=== PATIENT | female | born 1985 | race American Indian/Alaskan Native ===

== ENCOUNTER 2024-10-25 21:29 | Emergency (ER) | payer MEDICAID, SELFPAY ==
[2024-10-25 21:30] VITALS: BMI 19.3
[2024-10-25 21:34] VITALS: BP 109/72; PULSE 98; RESP 19; TEMP 36.6; O2SAT 98
[2024-10-25 22:59] LABS: Collection Type, Urine Clean Catch
[2024-10-25 23:09] LABS: Bilirubin,Urine Negative (Negative); Blood,Urine 1+ (Negative); Clarity,Urine Clear (Clear/Hazy); Color,Urine Yellow (Lt Yel-Yel); Culture Indicated,Urine Not Indicated; Glucose, Urine 1+ (Negative); Hyaline Casts,Urine < 1 /hpf (0-1); Ketones,Urine Negative (Negative); Leukocyte Esterase,Urine Negative (Negative); Nitrite,Urine Negative (Negative); Protein,Urine Trace (Neg - Trace); RBC,Urine 7 /hpf (0-3); Specific Gravity,Urine 1.033 (1.001-1.035); Squamous Epithelial Cell,Urine 6 /hpf (0-5); Urobilinogen,Urine Negative mg/dL (0.0-1.0); WBC,Urine 3 /hpf (0-5)
[2024-10-25 23:10] LABS: Basophils % (Auto) 0 % (0-2.5); Eosinophils # (Auto) 0.2 Thou/mm3 (0.0-0.5); Eosinophils % (Auto) 2 % (0-10); Hematocrit 37.2 % (36.0-46.0); Hemoglobin 12.7 g/dL (12.0-16.0); Immature Granulocytes % (Auto) 0 % (0-0); Immature Granulocytes Auto 0.04 Thou/mm3 (0.00-0.00); Lymphocytes # (Auto) 3.1 Thou/mm3 (1.0-4.8); Lymphocytes % (Auto) 25 % (10-50); Mean Corpuscular HGB Conc 34.1 g/dl (31.0-37.0); Mean Corpuscular Hemoglobin 29.1 pg (25.0-35.0); Mean Corpuscular Volume 85 fL (80-100); Monocytes % (Auto) 8 % (0-12); Neutrophils # (Auto) 7.9 Thou/mm3 (1.8-7.7); Neutrophils % (Auto) 65 % (37-80); Nucleated Red Blood Cell % 0 /100 WBC (0); Platelet Count 204 Thou/mm3 (140-440); RDW Standard Deviation 43.3 fL (36.4-46.3); Red Blood Count 4.36 Miln/mm3 (4.00-5.20); White Blood Count 12.3 Thou/mm3 (3.6-11.0)
[2024-10-25] MEDS: KETOROLAC INJ 30 MG/ML VIAL IVP (23:16)
[2024-10-25] MEDS: ONDANSETRON INJ 2 MG/ML INJ 2 ML 4 MG IV (23:16)
--- NOTE | 2024-10-25 23:25 | XR_ITS ---
Examination: CT abdomen and pelvis without contrast. Coronal 3-D reconstructions. Sagittal 2-D reconstructions. Date and time of exam:October 26, 2024 0034 hours INDICATIONS: Right lower abdominal pain today with nausea and vomiting, history kidney stones Comparison April 25, 2024 CTDI: vol (mGy): 5.79 DLP: (mGycm): 283 Technique: Axial images of the abdomen have been obtained, 3 mm slice thickness Intravenous contrast material has not been administered. Low dose protocols were performed. One or more of the following dose reduction techniques were used; automated exposure control, adjustment of the mA and/or KV according to patient size, use of iterative reconstruction technique. Findings: No focal liver or splenic lesion No pancreatic mass Bilateral tiny renal calculi with no hydronephrosis or ureteral calculi Aorta normal size No bowel obstruction Normal appendix Retroverted uterus Minimal thickening of the urinary bladder wall IMPRESSION: Bilateral nonobstructing renal calculi No hydronephrosis or ureteral calculi Normal appendix Cystitis pattern
[2024-10-25 23:31] LABS: Alanine Aminotransferase 11 U/L (10-49); Albumin, Serum 4.4 gm/dL (3.5-5.0); Albumin/Globulin Ratio 1.5 (1.2-2.2); Alkaline Phosphatase 55 U/L (46-116); Anion Gap 7 (7-16); Aspartate Amino Transferase 17 U/L (0-34); BUN/Creatinine Ratio 19 Ratio (12-20); Bilirubin,Total 0.5 mg/dL (0.3-1.2); Blood Urea Nitrogen 15 mg/dL (9-23); Carbon Dioxide 26.6 mMol/L (20.0-31.0); Chloride 106 mMol/L (98-107); Creatinine (Component) 0.8 mg/dL (0.6-1.3); Estimated Creatinine Clearance 79.5 mL/min (>60); Globulin 2.9 gm/dL (2.3-3.5); Glucose 117 mg/dL (74-106); Lipase 28 U/L (12-53); Osmolality,Calculated 281 (275-295); Potassium 3.4 mMol/L (3.4-5.1); Sodium 140 mMol/L (136-145); Total Protein 7.3 gm/dL (5.7-8.2); eGFR > 60 See Note
[2024-10-25 23:33] LABS: HCG Qualitative,Urine Negative
[2024-10-26 01:16] VITALS: BP 116/72; PULSE 78; RESP 18; TEMP 37.1; O2SAT 99
--- NOTE | 2024-10-26 01:43 | PRELIM_ITS ---
CT scan of the abdomen and pelvis without intravenous contrast (axial sections with sagittal and coronal reformats) October 26, 2024 0034 hours Clinical History: Right lower quadrant/flank pain and nausea/vomiting. Comparison: None available at the time of this report. Findings: The lung bases are clear. The liver, gallbladder, pancreas, spleen, and adrenals are unremarkable on this noncontrast study. Nonobstructing left kidney stone. No hydronephrosis. The uterus and ovaries are within normal limits. No evidence of bowel obstruction. The appendix is within normal limits. There is no mesenteric or retroperitoneal adenopathy. Air within the urinary bladder. There is no free fluid or free air. The osseous structures are unremarkable. Impression: Air within the urinary bladder, suspicious for cystitis. Nonobstructing left nephrolithiasis. Report Electronically Signed By: Christopher Brambila 10/26/2024 1:42:24 AM [EST]
[2024-10-26 02:27] VITALS: BP 119/95; PULSE 87; RESP 18; O2SAT 99
--- NOTE | 2024-10-26 05:02 | EDNOTE_ITS ---
ED Female Urogenital RME/HPI General Chief complaint: Abdominal Pain Stated complaint: RLQ PAIN HX OF KIDNEY STONES Time Seen by Provider: 10/25/24 22:29 Arrival date/time: 10/25/24 21:29 39F with history of kidney stones presents to ED with 1 day of R flank pain that radiates towards going, as well as some N/V. Patient denies dysuria. Patient states this feels similar to other kidney stones. Limitations: no limitations Related Data Previous Rx's ?Medication ?Instructions ?Recorded ibuprofen 600 mg tablet 600 mg PO Q6H PRN pain #30 t abs 04/25/23 nitrofurantoin macrocrystal 100 mg 100 mg PO Q12H #14 caps 04/25/23 capsule ondansetron 4 mg disintegrating 4 mg PO Q8H PRN nausea and 04/25/23 tablet vomiting #10 tabs ibuprofen 600 mg tablet 600 mg PO TID PRN pain #20 t abs 04/25/24 naproxen 500 mg tablet 500 mg PO BID PRN pain #30 t abs 10/26/24 ondansetron 4 mg disintegrating 4 mg PO Q8H PRN nausea and 10/26/24 tablet vomiting #14 tabs Allergies Allergy/AdvReac Type Severity Reaction Status Date / Time codeine Allergy Severe Hives Verified 04/25/23 06:05 iodine Allergy Severe Difficulty Verified 04/25/24 09:16 Breathing meperidine (From Demerol) Allergy Severe Vomiting Verified 04/25/23 06:05 Review of Systems Review of Systems Systems Reviewed: All systems reviewed, normal except as documented Constitutional Constitutional: Reports system reviewed and no additional complaints, except as documented, Denies fever(s) and Denies headache(s) ENT Ears, Nose, Mouth, and Throat: Denies disequilibrium and Denies headache(s) Cardiovascular Cardiovascular: Reports system reviewed and no additional complaints, except as documented, Denies chest pain and Denies dyspnea Respiratory Respiratory: Reports system reviewed and no additional complaints, except as documented, Denies cough and Denies dyspnea Gastrointestinal Gastrointestinal: Reports system reviewed and no additional complaints, except as documented, Reports as per HPI, Denies abdominal pain, Reports nausea and Reports vomiting Genitourinary Genitourinary: Reports as per HPI and Reports flank pain Neurologic Neurologic: Reports system reviewed and no additional complaints, except as documented, Denies confusion, Denies disequilibrium and Denies headache(s) Psychiatric Psychiatric: Denies confusion Past Medical History Past Medical History CARDIAC: Negative Cardiac Disorders or Congestive Heart Failure RESPIRATORY: Negative Chronic Obstructive Pulmonary Disease (COPD) or Asthma GENITOURINARY: Negative Renal Disease ENDOCRINE: Negative Diabetes Mellitus Type 1 or Diabetes Mellitus Type 2 HEMATOLOGIC: Positive Anemia; Negative Sickle Cell Disease OTHER HISTORY: Negative Blood Transfusions Surgical History SURGICAL: Positive Tubal Ligation and Section Social History SMOKING STATUS: Never smoker ED Exam General Limitations: Present no limitations General appearance: Present alert and in no apparent distress Head Head exam: Present atraumatic Eye Eye exam: Present normal appearance, PERRL and EOMI ENT ENT exam: Present normal exam, normal oropharynx and mucous membranes moist Neck Neck exam: Present normal inspection, full ROM and trachea midline Chest Chest inspection: Present normal inspection and symmetric chest wall rise Respiratory Respiratory exam: Present normal lung sounds bilaterally Cardiovascular Cardiovascular exam: Present regular rate, normal rhythm and normal heart sounds Abdominal Exam Abdominal exam: Present soft and normal bowel sounds Extremities Exam Extremities exam: Present normal inspection and full ROM Back Exam Back exam: Present full ROM and CVA tenderness (R) (mild) Neurological Exam Neurological exam: Present alert, oriented X3 and CN II-XII intact Psychiatric Psychiatric exam: Present normal affect and normal mood Skin Skin exam: Present warm, dry, intact and normal color Course Quality Measures none Orders Category Date Time Status CT Screening NOW Care 10/25/24 22:30 Completed Insert IV NOW Care 10/25/24 22:[address] abdomen pelvis wo con Stat Exams 10/25/24 23:25 Taken CBC Stat Lab 10/25/24 22:49 Completed CMP [Comprehensive Metabolic Panel] Stat Lab 10/25/24 22:49 Completed HCG Qualitative,Urine Stat Lab 10/25/24 22:46 Completed Lipase Stat Lab 10/25/24 22:49 Completed Urinalysis, C/S if Indicated Stat Lab 10/25/24 22:46 Completed Ketorolac Inj [Toradol Inj] Med 10/25/24 22:30 Discontinued 30 mg IVP X1 ONE Ondansetron Inj [Zofran Inj] Med 10/25/24 22:30 Discontinued 4 mg IV X1 ONE Vital Signs Vital signs: Vital Signs Temperature 98 F 10/25/24 21:34 Pulse Rate 98 10/25/24 21:34 Respiratory Rate 19 10/25/24 21:34 Blood Pressure 109/72 10/25/24 21:34 Pulse Oximetry (%) 98 10/25/24 21:34 Oxygen Delivery Method Room Air 10/25/24 21:34 O2 at 98% on RA and WNLs Urogenital - Female MDM Narrative MDM Narrative:: 39F with history of kidney stones presents to ED with 1 day of R flank pain that radiates towards going, as well as some N/V. Patient denies dysuria. Patient states this feels similar to other kidney stones. Physical exam reveals mild CVA tenderness but no ab tenderness. Patient is afebrile, alert, but appears to be in pain. CT reveals non-obstructing stone still in R kidney. Possible air in bladder suggesting UTI, but UA is clean and patient has no symptoms. Patient reveals during her previous , her bladder was accidentally cut during the procedure. Air likely from that. Mild leukocytosis. CMP unremarkable. Symptoms resolved with meds. Patient data External records reviewed:: [facility] previous records Clinical information provided by:: patient Social determinants that could affect healthcare access:: none Patient has the following chronic illnesses:: kidney stones How is presenting disease/condition affected by chronic disease/condition?: exacerbated by Evaluation data The following diagnostics were reviewed and interpreted by me:: lab results and radiology exam(s) Lab and/or radiology exams considered but not ordered:: ordered Interpretation Summary: above Medications / Prescriptions Medications or Prescriptions considered but not ordered:: ordered Medication administrations:: Medication Administration History Discontinued Medications Ketorolac Tromethamine (Ketorolac Inj 30 Mg/Ml Vial) 30 mg IVP X1 ONE Stop: 10/25/24 22:31 Last Admin: 10/25/24 23:16 Dose: 30 mg Documented By: SILVIA Ondansetron HCl (Ondansetron Inj 2 Mg/Ml Inj 2 Ml) 4 mg IV X1 ONE; Protocol Stop: 10/25/24 22:31 Last Admin: 10/25/24 23:16 Dose: 4 mg Documented By: SILVIA above Consultations Consultation(s) initiated? (list below): No Diagnosis Urogenital Female Differential Diagnosis: urinary tract infection, bacterial vaginosis, trichomoniasis, cervicitis, ovarian cyst, vaginitis, ruptured ovarian cyst, cyst of Bartholin's gland, cystitis, dysmenorrhea and other (kidney stone, pyelo) Most likely diagnosis given after review of the tests above:: kidney stone Admission Indicated Admission indicated?: not indicated Admission Request Was there a request for admission?: No Disposition Plan Disposition Plan: Discharge Discharge Attestation Discharge Attestation: The patient and all family members were given an opportunity to ask questions and understood the discharge instructions. Discharge instructions specifically effects, indications for sooner follow up or return to the emergency department, and the expected course of current diagnosis. Patient condition: Stable Discharge Plan Plan Patient Disposition: HOME (Self Care) Disposition Comment: Stable Prescriptions/Referrals Prescriptions/Med Rec: New ondansetron 4 mg tablet,disintegrating 4 mg PO Q8H PRN (Reason: nausea and vomiting) Qty: 14 0RF naproxen 500 mg tablet 500 mg PO BID PRN (Reason: pain) Qty: 30 0RF No Action ibuprofen 600 mg tablet 600 mg PO TID PRN (Reason: pain) Qty: 20 0RF ibuprofen 600 mg tablet 600 mg PO Q6H PRN (Reason: pain) Qty: 30 0RF nitrofurantoin macrocrystal 100 mg capsule 100 mg PO Q12H Qty: 14 0RF Rx Instructions: must administer with a meal/food ondansetron 4 mg tablet,disintegrating 4 mg PO Q8H PRN (Reason: nausea and vomiting) Qty: 10 0RF Referrals: Vaibhav Fried MD [Primary Care Provider] - In 1 week Problem List Clinical Impression: Calculus of kidney Patient/Caregiver Discharge Instructions Education Materials: ED Kidney Stone w/ Colic Additional Instructions: Please follow-up with PCP within 24-48 hours and return immediately if symptoms worsen. Your kidney stone is still in the kidney and has not descended. Can ask for referral to urologist. NSAIDs tend to work better than Tylenol for this type of pain. Print Language: Macedonian Stand Alone Forms: Patient Portal Info Letter ISABELL/NEPTALI Supervising Physician ISABELL/NEPTALI Supervising Physician: Dr. Tavera
== END 2024-10-26 02:28 | disposition home or self-care (01) ==
PROVIDERS: Physician Assistant; Emergency Provider Emergency Medicine; PCP Family Medicine
DX: N20.0 Calculus of kidney (principal)
CPT/HCPCS: 36415; 74176; 80053; 81001; 81025; 83690; 85025; 96374; 96375; 99284; J1885; J2405

== ENCOUNTER 2025-07-15 05:37 | Emergency (ER) | payer MEDICAID, SELFPAY ==
[2025-07-15 05:39] VITALS: BMI 19.3
[2025-07-15 05:52] VITALS: BP 109/68; PULSE 55; RESP 19; TEMP 36.8; O2SAT 100
--- NOTE | 2025-07-15 06:09 | XR_ITS ---
EXAMINATION: Left hand 2 views TECHNIQUE: AP lateral left hand 2 views Date and time of exam: July 15, 2025, 0815 hours INDICATIONS: Patient fell today with injury to the hand, hand pain FINDINGS: Moderate osteopenia Soft tissue swelling dorsum of the hand No acute fracture IMPRESSION: No acute fracture
--- NOTE | 2025-07-15 06:09 | XR_ITS ---
Examination: Left hip AP, lateral, AP pelvis 3 views Technique: Hip AP lateral, AP pelvis, 3 views Exam date and time: July 15, 2025, 0817 hours INDICATIONS: Patient fell today with injury to the left hip, left hip pain. FINDINGS: No left hip fracture or dislocation Right hip bones of the pelvis intact IMPRESSION: No acute hip or pelvic fracture.
--- NOTE | 2025-07-15 06:10 | XR_ITS ---
EXAMINATION: Ankle, left 3 views. Technique: Ankle AP, oblique, lateral 3 views Date and time of exam: July 15, 2025, 0820 hours INDICATIONS: Patient fell today with injury to the ankle, ankle pain. FINDINGS: No ankle fracture or dislocation No foreign body IMPRESSION: No ankle fracture or dislocation
--- NOTE | 2025-07-15 06:12 | EDNOTE_ITS ---
ED Fall Injury RME/HPI General Chief Complaint: Fall Stated Complaint: FELL ON LEFT SIDE, PAIN TO LEFT ARM/HAND Time Seen by Provider: 07/15/25 06:05 Arrival date/time: 07/15/25 05:37 RME / HPI RME / HPI Narrative: See [facility] for Dr. Puri's HPI documentation. Related Data Previous Rx's ?Medication ?Instructions ?Recorded ibuprofen 600 mg tablet 600 mg PO Q6H PRN pain #30 t abs 04/25/23 nitrofurantoin macrocrystal 100 mg 100 mg PO Q12H #14 caps 04/25/23 capsule ondansetron 4 mg disintegrating 4 mg PO Q8H PRN nausea and 04/25/23 tablet vomiting #10 tabs ibuprofen 600 mg tablet 600 mg PO TID PRN pain #20 t abs 04/25/24 naproxen 500 mg tablet 500 mg PO BID PRN pain #30 t abs 10/26/24 ondansetron 4 mg disintegrating 4 mg PO Q8H PRN nausea and 10/26/24 tablet vomiting #14 tabs hydrocodone 5 mg-acetaminophen 325 2 tab PO Q8H PRN pa in #12 tabs 07/15/25 mg tablet Allergies Allergy/AdvReac Type Severity Reaction Status Date / Time codeine Allergy Severe Hives Verified 04/25/23 06:05 iodine Allergy Severe Difficulty Verified 04/25/24 09:16 Breathing meperidine (From Demerol) Allergy Severe Vomiting Verified 04/25/23 06:05 Review of Systems Review of Systems Systems Reviewed: All systems reviewed, normal except as documented Past Medical History Past Medical History CARDIAC: Negative Cardiac Disorders or Congestive Heart Failure RESPIRATORY: Negative Chronic Obstructive Pulmonary Disease (COPD) or Asthma GENITOURINARY: Negative Renal Disease ENDOCRINE: Negative Diabetes Mellitus Type 1 or Diabetes Mellitus Type 2 HEMATOLOGIC: Positive Anemia; Negative Sickle Cell Disease OTHER HISTORY: Negative Blood Transfusions Surgical History SURGICAL: Positive Tubal Ligation and Section Social History SMOKING STATUS: Never smoker ED Exam Narrative Physical exam: See [facility] for Dr. Puri's physical exam documentation. Course Quality Measures none Orders Category Date Time Status XR ankle comp LT min 3V Stat Exams 07/15/25 06:10 Completed XR hand LT 2V Stat Exams 07/15/25 06:09 Completed XR hip LT w pelvis 2-3V Stat Exams 07/15/25 06:09 Completed HYDROcodone*/APAP 5/325 [[place] 5/325] Med 07/15/25 08:49 Discontinued 2 tab PO X1 ONE Ibuprofen Tab [Motrin Tab] Med 07/15/25 08:49 Discontinued 600 mg PO X1 ONE Vital Signs Vital signs: Vital Signs Temperature 98.2 F 07/15/25 05:52 Pulse Rate 55 L 07/15/25 05:52 Respiratory Rate 19 07/15/25 05:52 Blood Pressure 109/68 07/15/25 05:52 Pulse Oximetry (%) 100 07/15/25 05:52 Oxygen Delivery Method Room Air 07/15/25 05:52 Fall MDM Narrative MDM Narrative:: This section includes all my notes and documentations, including HPI, PE, and ED course. 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 No head injury. She reports left hand/hip/ankle pain. No other complaints. ROS: All negative except as documented in HPI. Physical Exam: General: Alert and oriented. No acute distress when remaining still. Eyes: Conjunctivae and lids clear. EOMI. PERRL. ENT: No signs of head trauma. Neck: Supple. No tenderness. Heart: RRR. Lungs: No respiratory distress. Good air movement. No rhonchi, wheezing, rales. Chest: No tenderness. Abdomen: Soft and nontender. Normal bowel sounds. No distension. No rebound or guarding. Back: No tenderness. Skin: Warm and dry. Neuro: Alert and oriented X 3. Cranial Nerves II-XII grossly intact. No peripheral motor deficits. Musculoskeletal: Left hand edematous with ecchymosis and tenderness. Equivocal left ankle and left hip tenderness. All other major joints and bones are not tender with no limited ROM. I reviewed all diagnostic test results: My interpretation of the left hand x-ray is: no fracture. My interpretation of the left ankle x-ray is: no fracture. My interpretation of the hip/pelvis x-ray is: no fracture. At this point, diagnoses include: Contusion of left hand Treatment here included: [place] 5/325 mg X 2 Ibuprofen 600 mg She felt better. Recommended supportive care. Based on my best medical judgment, made decision no further evaluation or treatment indicated at this time. Patient understands and agrees to the discharge instructions customized and printed, see below. Discharge Instructions from Dr. Puri printed for you: 1. Fortunately, there is no broken bone. 2. Minimal use of your left hand for 3 days for rest needed to heal. 3. Elevate above the heart level for 3 days as much as possible. Placing your hand on your head is a good method. 4. Apply ice for 20 minutes every 2-3 hours today and tomorrow. 5. Ibuprofen 600 mg every 6-8 hours today and tomorrow to decrease inflammation then as needed. 6. [place] for severe pain. 7. See a private doctor on 07/17/25 for recheck. Ask for help until you are completely better. 8. Seek immediate medical care with worsening or with any concerns. Pavan Puri MD Patient data External records reviewed:: [facility] previous records (Per chart review, patient was seen here on 10/26/24 for kidney calculus.) Clinical information provided by:: patient Social determinants that could affect healthcare access:: none Patient has the following chronic illnesses:: none How is presenting disease/condition affected by chronic disease/condition?: no chronic disease Evaluation data The following diagnostics were reviewed and interpreted by me:: radiology exam(s) Lab and/or radiology exams considered but not ordered:: none Interpretation Summary: I reviewed all diagnostic test results: My interpretation of the left hand x-ray is: no fracture. My interpretation of the left ankle x-ray is: no fracture. My interpretation of the hip/pelvis x-ray is: no fracture. Medications / Prescriptions Medications or Prescriptions considered but not ordered:: none Medication administrations:: Medication Administration History Discontinued Medications Hydrocodone Bitart/Acetaminophen (Hydrocodone/Apap 5/325 Tablet) 2 tab PO X1 ONE Stop: 07/15/25 08:50 Last Admin: 07/15/25 09:02 Dose: 2 tab Documented By: VL Ibuprofen (Ibuprofen Tab 600 Mg Tablet) 600 mg PO X1 ONE Stop: 07/15/25 08:50 Last Admin: 07/15/25 09:01 Dose: 600 mg Documented By: VL Treatment here included: [place] 5/325 mg X 2 Ibuprofen 600 mg Consultations Consultation(s) initiated? (list below): No Diagnosis Fall Differential Diagnosis: other (Fracture/contusion/sprain/strain) Most likely diagnosis given after review of the tests above:: Contusion of left hand Admission Indicated Admission indicated?: not indicated Explain why admission is indicated or not indicated:: With no condition needing emergent intervention, there was no indication for admission. Admission Request Was there a request for admission?: No Disposition Plan Disposition Plan: Discharge Discharge Attestation Discharge Attestation: The patient and all family members were given an opportunity to ask questions and understood the discharge instructions. Discharge instructions specifically effects, indications for sooner follow up or return to the emergency department, and the expected course of current diagnosis. Patient condition: Stable Discharge Plan Plan Patient Disposition: HOME (Self Care) Prescriptions/Referrals Prescriptions/Med Rec: New hydrocodone-acetaminophen 5-325 mg tablet 2 tab PO Q8H MDD 6 PRN (Reason: pain) Qty: 12 0RF No Action ibuprofen 600 mg tablet 600 mg PO TID PRN (Reason: pain) Qty: 20 0RF ibuprofen 600 mg tablet 600 mg PO Q6H PRN (Reason: pain) Qty: 30 0RF nitrofurantoin macrocrystal 100 mg capsule 100 mg PO Q12H Qty: 14 0RF Rx Instructions: must administer with a meal/food ondansetron 4 mg tablet,disintegrating 4 mg PO Q8H PRN (Reason: nausea and vomiting) Qty: 10 0RF ondansetron 4 mg tablet,disintegrating 4 mg PO Q8H PRN (Reason: nausea and vomiting) Qty: 14 0RF naproxen 500 mg tablet 500 mg PO BID PRN (Reason: pain) Qty: 30 0RF Referrals: No Primary/Family,Physician [Primary Care Provider] - In 1 week Problem List Clinical Impression: Contusion of left hand Patient/Caregiver Discharge Instructions Discharge Activity: activity as tolerated Education Materials: ED Hand Contusion Additional Instructions: Discharge Instructions from Dr. Puri printed for you: 1. Fortunately, there is no broken bone. 2. Minimal use of your left hand for 3 days for rest needed to heal. 3. Elevate above the heart level for 3 days as much as possible. Placing your hand on your head is a good method. 4. Apply ice for 20 minutes every 2-3 hours today and tomorrow. 5. Ibuprofen 600 mg every 6-8 hours today and tomorrow to decrease inflammation then as needed. 6. [place] for severe pain. 7. See a private doctor on 07/17/25 for recheck. Ask for help until you are completely better. 8. Seek immediate medical care with worsening or with any concerns. Print Language: Korean Stand Alone Forms: [employer] Info., Patient Portal Info Letter
[2025-07-15] MEDS: IBUPROFEN TAB 600 MG TABLET PO (09:01)
[2025-07-15] MEDS: HYDROcodone/APAP 5/325 TABLET 2 TAB PO (09:02)
== END 2025-07-15 11:12 | disposition home or self-care (01) ==
PROVIDERS: Emergency Provider Emergency Medicine
DX: S60.222A Contusion of left hand, initial encounter (principal); S99.912A Unspecified injury of left ankle, initial encounter; S79.912A Unspecified injury of left hip, initial encounter; W19.XXXA Unspecified fall, initial encounter
CPT/HCPCS: 73120; 73502; 73610; 99282; A9270